=== PATIENT | female | born 1960 | race Caucasian/White ===

== ENCOUNTER → 2016-10-30 | Outpatient (CLI) | payer BC ==
[~2016-10-30] MED LIST: ASCO-296 PO; DIPH25CA84 PO; ESTR1TAB77 PO; PSEU120T44 PO; ROSU10TA13 PO
== END ==
LOC: WC.BC 13:11
DX: Z12.31 Encounter for screening mammogram for malignant neoplasm of breast (principal)
CPT/HCPCS: 77063; G0202